=== PATIENT | female | born 1945 | race Caucasian/White ===

== ENCOUNTER → 2022-04-03 11:23 | Outpatient (CLI) | payer MEDICARE, SELFPAY ==
--- NOTE | 2022-04-03 | DI.MRI.S_ITS ---
PROCEDURE: MR HEAD/BRAIN WO/W CON INDICATIONS: LUNG CANCER TECHNIQUE: Noncontrast axial T1 spin echo, axial T2 fast spin echo, sagittal and axial FLAIR, coronal T2 fast spin echo, axial gradient echo, axial diffusion and ADC through the brain. After the administration of contrast, axial and coronal and sagittal T1 spin echo with fat saturation through the brain. COMPARISON: [facility], CT, CT CHEST ABD PEL W CON, 04/03/2022, 13:08. FINDINGS: Image quality: Excellent. CSF spaces: Basal cisterns are patent. No extra-axial fluid collections. Ventricles are normal in size and shape. Brain: No midline shift. Within the left inferior cerebellar hemisphere, there is a 1 cm focal lesion seen with hemosiderin deposition, as on series 10, image 6 and on series 9, image 22. A mild amount of enhancement can be seen, as on series 13, image 32. No additional areas of abnormal enhancement can be seen. There is cerebral volume loss for age. There is periventricular white matter chronic small vessel ischemic change. The brainstem appears normal. Diffusion-weighted images demonstrate no acute ischemic insults. No chronic ischemic insults. Normal intravascular flow voids are present. Skull and face: Calvarial marrow is normal in signal. Orbits appear normal. Note is made of bilateral lens replacements. Sinuses: Sinuses and mastoids appear clear. IMPRESSION: 1 cm focal lesion with mild enhancement seen involving the left inferior cerebellar hemisphere. This is felt most likely to be related to a benign vascular lesion. Differential diagnosis in this patient would also include metastasis, yet this is considered to be less likely. Please consider a follow-up brain MRI (without and with contrast) in 6-8 weeks for further evaluation. Dictated by: Puma King M.D. on 04/03/2022 at 14:11 Approved by: Puma King M.D. on 04/03/2022 at 14:14
--- NOTE | 2022-04-03 | DI.CT.S_ITS ---
PROCEDURE: CT CHEST ABD PEL W CON INDICATIONS: LUNG CANCER TECHNIQUE: After the administration of oral and intravenous contrast, axial sections acquired from the supraclavicular neck to the pubic symphysis. Coronal and sagittal reformats were performed. For radiation dose reduction, the following was used: automated exposure control, adjustment of mA and/or kV according to patient size. COMPARISON: CT chest/abdomen/pelvis dated 12/31/2021 at [facility]. FINDINGS: Image quality: Excellent. CHEST: Lower Neck: No enlarged lymph nodes. Thyroid: Within normal limits. Axillae: No enlarged lymph nodes. Chest Wall: A right chest Port-A-Cath is seen with catheter tip at the superior cavoatrial junction Lungs and Airways: Left suprahilar hypodense mass measures approximately 1.9 x 1.0 cm (22/2), decreased when size when compared to the prior CT from 12/31/2021 when the lesion measured approximately 3.6 x 2.5 cm. Previously seen left upper lobe mass adjacent to the major fissure measures approximately 1.9 x 0.8 cm (86/3), previously 2.8 x 2.0 cm. Diffuse bilateral peripheral subpleural nodules and subpleural reticulations do not appear significantly changed. Mild centrilobular and paraseptal emphysema. No acute consolidation. Pleura: No pneumothorax or pleural effusions. Heart: Heart size is normal. No pericardial effusion. Moderate coronary artery calcifications. Thoracic Vessels: The aorta and pulmonary arteries demonstrate normal size. Mediastinum and Jannie: No enlarged lymph nodes. Previously seen enlarged AP window lymph node has significantly decreased in size and is not well visualized. Esophagus: No wall thickening. No hiatal hernia. ABDOMEN: Liver: Multiple small indeterminate hypodensities are seen throughout both lobes of the liver, which measure less than 1 cm in size. A few of these lesions demonstrate focal central calcification. These lesions have decreased in size when compared to the CT from 12/31/2021. Gallbladder: Unremarkable. Biliary ducts: Unremarkable. Pancreas: Unremarkable. Spleen: Unremarkable. Adrenal Glands: Unremarkable. Kidneys and Ureters: Unremarkable. Stomach and Bowel: Surgical anastomosis is seen in the rectosigmoid junction. Peritoneum: No abnormal intraperitoneal fluid. No free air. Ventral Wall: No hernia. Abdominal Nodes: No retroperitoneal or mesenteric adenopathy by size criteria. Vessels: Aorta and inferior vena cava are normal in size. Moderate aortic atherosclerotic calcifications. PELVIS: Pelvic Organs: Unremarkable. Bladder: Unremarkable. Pelvic Nodes: No enlarged lymph nodes. Miscellaneous: No inguinal hernias are seen. Bones: Postsurgical changes from left hip arthroplasty with cystic metallic artifact. Multilevel degenerative changes are seen in the spine. No suspicious osteolytic or osteoblastic lesion is seen. IMPRESSION: 1. Overall, interval response to therapy when compared to the CT from 12/31/2021. 2. Left suprahilar mass and left upper lobe perifissural mass have decreased in size when compared to the prior CT. 3. Left AP window lymph node has decreased in size and is no longer clearly seen. No bulky lymphadenopathy in the chest, abdomen, or pelvis. 4. Diffuse hepatic metastases have decreased in size when compared to the prior CT. No new focus of distant metastatic disease. Dictated by: Francisco Pace M.D. on 04/03/2022 at 16:30 Approved by: Francisco Pace M.D. on 04/03/2022 at 16:51
== END ==
PROVIDERS: PCP Physician Assistant
DX: C79.31 Secondary malignant neoplasm of brain (principal); C34.02 Malignant neoplasm of left main bronchus; C18.7 Malignant neoplasm of sigmoid colon; C78.7 Secondary malignant neoplasm of liver and intrahepatic bile duct
CPT/HCPCS: 70553; 71260; 74177; Q9967